=== PATIENT | male | born 1935 | race Caucasian/White ===

== ENCOUNTER 2022-07-01 08:25 | Inpatient (IN) | payer MEDICARE, OTHER ==
[2022-07-01 09:21] LABS: #Lymphocytes 1.2 thou/uL (1.20-3.40); #Monocytes 0.9 thou/uL (0.11-0.59); #Neutrophils 8.4 thou/uL (1.40-6.50); %Basophils 0.1 % (0.0-1.0); %Eosinophils 0.4 % (0.0-10.0); %Lymphocytes 10.9 % (21.0-51.0); %Monocytes 8.6 % (0.0-10.0); Hemoglobin 13.4 g/dL (14.0-18.0); Mean Corpuscular HGB CONC 33.3 g/dL (32.0-36.0); Mean Corpuscular Hemoglobin 31.5 pg (27.0-31.0); Mean Corpuscular Volume 94.8 fL (78.0-98.0); Mean Platelet Volume 8.8 fL (7.4-10.4); Platelet Count 112 thou/uL (130-400); RBC Distribution Width 12.1 % (11.5-14.5); Red Blood Cell (RBC) Count 4.25 mill/uL (4.70-6.10); White Blood Cell (WBC) Count 10.6 thou/uL (4.8-10.8)
[2022-07-01 09:45] LABS: ALT (SGPT) 20 U/L (8-55); AST (SGOT) 44 U/L (5-34); Albumin 3.6 g/dL (3.4-4.8); Alkaline Phosphatase 75 U/L (40-110); Anion Gap 14 mmol/L (10-20); BUN (Urea Nitrogen) 42 mg/dL (8.4-25.7); Bilirubin, Total 2.1 mg/dL (0.2-1.2); CK (CPK) 939 U/L (30-200); Calc. Creatinine Clearance 0 mL/min (70-130); Calcium 10.1 mg/dL (7.8-10.44); Carbon Dioxide 23 mmol/L (23-31); Chloride 101 mmol/L (98-107); Estimated GFR 34; Globulin 3.3 g/dL (2.4-3.5); Glucose 117 mg/dL (83-110); Lipase 42 U/L (8-78); Potassium 3.9 mmol/L (3.5-5.1); Protein, Total 6.9 g/dL (5.8-8.1); Sodium 134 mmol/L (136-145)
[2022-07-01 10:15] LABS: SARS-CoV-2 NAA Rapid Test DETECTED (NotDetected)
[2022-07-01] MEDS ORDERED: Cefepime 2 GM VIAL ONE (10:23)
[2022-07-01 10:29] LABS: Bilirubin Negative (Negative); Blood, Urine 2+ (Negative); Clarity Clear (Clear); Glucose, Urine (Dipstick) Greater than 1000 mg/dL (Negative); Ketone, Urine Negative (Negative); Leukocyte 250 Leu/uL (Negative); Nitrite Negative (Negative); Protein, Urine (Dipstick) 10 mg/dL (Neg-Trace); Specific Gravity, Urine 1.017 (1.002-1.036); Squamous Epithelial None Seen HPF (0-3); Urobilinogen Normal mg/dL (Less than 2); WBC/HPF 21-50 HPF (0-3)
[2022-07-01 10:31] LABS: Bacteria/HPF 1+ HPF (None Seen)
[2022-07-01] MEDS ORDERED: Vancomycin 1 GM/200 ML BAG ONE (10:46)
[2022-07-01] MEDS ORDERED: Bisacodyl 5 MG TAB PO PRN (11:43)
[2022-07-01] MEDS ORDERED: Calcium Carbonate 500 MG ChewTAB PO PRN (11:43)
[2022-07-01] MEDS ORDERED: Ondansetron ODT 4 MG TAB PO PRN (11:43)
[2022-07-01] MEDS ORDERED: Ondansetron PF 4 MG/2 ML Vial IVP PRN (11:43)
[2022-07-01] MEDS ORDERED: Senokot S 8.6-50 MG TAB PO PRN (11:43)
[2022-07-01] MEDS ORDERED: Dexamethasone 4 mg/ml Vial SLOW IVP SCH (12:15)
[2022-07-01] MEDS ORDERED: Dexamethasone 10 MG/ML VIAL ONE (12:54)
[2022-07-01] MEDS: Sodium Chloride 0.9% 1,000 ML IV SCH (12:56)
[2022-07-01] MEDS ORDERED: REMDESIVIR 200 MG in Sodium Chloride 0.9% 250 ML 210 ML IV SCH (13:45)
[2022-07-01] MEDS: Heparin 5,000 UNITS/ML VIAL SC SCH ×2 (16:09→21:00)
[2022-07-01] MEDS: risperiDONE 0.25 MG TAB PO SCH ×2 (16:09→20:58)
[2022-07-01] MEDS: HumuLIN 70/30 (300 UNITS/3 ML VIAL) SC SCH (17:29)
[2022-07-01] MEDS: Ciprofloxacin 0.3% Ophth Soln 2.5 ml Bottle L EYE SCH ×2 (20:56→20:57)
[2022-07-01] MEDS: Insulin Glargine 30 UNITS/0.3 ML VIAL SC SCH (20:57)
[2022-07-01] MEDS: Atorvastatin Calcium 40 MG TAB PO SCH (20:57)
[2022-07-02] MEDS: Sodium Chloride 0.9% 1,000 ML IV SCH ×2 (03:02→07:31)
[2022-07-02 03:50] LABS: #Lymphocytes 0.5 thou/uL (1.20-3.40); #Monocytes 0.3 thou/uL (0.11-0.59); #Neutrophils 5.3 thou/uL (1.40-6.50); %Eosinophils 0.3 % (0.0-10.0); %Lymphocytes 8.7 % (21.0-51.0); %Monocytes 4.5 % (0.0-10.0); %Neutrophils 86.6 % (42.0-75.0); Hemoglobin 12.7 g/dL (14.0-18.0); Mean Corpuscular Hemoglobin 32.1 pg (27.0-31.0); Mean Corpuscular Volume 97.4 fL (78.0-98.0); Mean Platelet Volume 8.6 fL (7.4-10.4); Platelet Count 101 thou/uL (130-400); Red Blood Cell (RBC) Count 3.95 mill/uL (4.70-6.10); White Blood Cell (WBC) Count 6.1 thou/uL (4.8-10.8)
[2022-07-02 04:11] LABS: ALT (SGPT) 26 U/L (8-55); AST (SGOT) 42 U/L (5-34); Albumin 3.1 g/dL (3.4-4.8); Alkaline Phosphatase 69 U/L (40-110); Anion Gap 12 mmol/L (10-20); BUN (Urea Nitrogen) 35 mg/dL (8.4-25.7); Bilirubin, Total 0.8 mg/dL (0.2-1.2); CK (CPK) 393 U/L (30-200); Calc. Creatinine Clearance 0 mL/min (70-130); Calcium 9.5 mg/dL (7.8-10.44); Carbon Dioxide 20 mmol/L (23-31); Chloride 108 mmol/L (98-107); Estimated GFR 54; Globulin 2.9 g/dL (2.4-3.5); Glucose 413 mg/dL (83-110); Potassium 4.4 mmol/L (3.5-5.1); Sodium 136 mmol/L (136-145)
[2022-07-02] MEDS: HumuLIN 70/30 (300 UNITS/3 ML VIAL) SC SCH ×4 (06:31→17:01)
[2022-07-02] MEDS: Ciprofloxacin 0.3% Ophth Soln 2.5 ml Bottle L EYE SCH ×4 (09:59→21:16)
[2022-07-02] MEDS: Dexamethasone 4 mg/ml Vial SLOW IVP SCH (09:59)
[2022-07-02] MEDS: Heparin 5,000 UNITS/ML VIAL SC SCH ×3 (10:02→21:15)
[2022-07-02] MEDS: risperiDONE 0.25 MG TAB PO SCH ×3 (10:03→21:14)
[2022-07-02] MEDS: REMDESIVIR 100 MG in Sodium Chloride 0.9% 250 ML 230 ML IV SCH (17:30)
[2022-07-02] MEDS: Atorvastatin Calcium 40 MG TAB PO SCH (21:14)
[2022-07-02] MEDS: Acetaminophen 325 MG TAB PO PRN (21:14)
[2022-07-02] MEDS: Insulin Glargine 30 UNITS/0.3 ML VIAL SC SCH (21:14)
[2022-07-03] MEDS: Dexamethasone 4 mg/ml Vial SLOW IVP SCH (08:27)
[2022-07-03] MEDS: Heparin 5,000 UNITS/ML VIAL SC SCH ×3 (08:27→20:13)
[2022-07-03] MEDS: risperiDONE 0.25 MG TAB PO SCH ×3 (08:27→20:12)
[2022-07-03] MEDS: HumuLIN 70/30 (300 UNITS/3 ML VIAL) SC SCH ×3 (08:27→17:02)
[2022-07-03] MEDS: Ciprofloxacin 0.3% Ophth Soln 2.5 ml Bottle L EYE SCH ×4 (08:28→20:20)
[2022-07-03] MEDS: REMDESIVIR 100 MG in Sodium Chloride 0.9% 250 ML 230 ML IV SCH (14:10)
[2022-07-03] MEDS ORDERED: Saccharomyces boulardii 250 MG CAP PO SCH (14:30)
[2022-07-03] MEDS: Atorvastatin Calcium 40 MG TAB PO SCH (20:11)
[2022-07-03] MEDS: Acetaminophen 325 MG TAB PO PRN (20:11)
[2022-07-03] MEDS: Insulin Glargine 30 UNITS/0.3 ML VIAL SC SCH (20:13)
[2022-07-03] MEDS ORDERED: Ziprasidone 20 MG VIAL IM SCH (23:45)
[2022-07-03] MEDS ORDERED: Sterile Water 10 ML VIAL FS PRN (23:45)
[2022-07-04 08:34] LABS: #Lymphocytes 1.1 thou/uL (1.20-3.40); #Monocytes 0.5 thou/uL (0.11-0.59); #Neutrophils 3.1 thou/uL (1.40-6.50); %Basophils 0.3 % (0.0-1.0); %Eosinophils 0.3 % (0.0-10.0); %Lymphocytes 23.3 % (21.0-51.0); %Monocytes 10.2 % (0.0-10.0); Hemoglobin 12.7 g/dL (14.0-18.0); Mean Corpuscular Hemoglobin 31.6 pg (27.0-31.0); Mean Platelet Volume 8.3 fL (7.4-10.4); Platelet Count 114 thou/uL (130-400); RBC Distribution Width 12.2 % (11.5-14.5); Red Blood Cell (RBC) Count 4.02 mill/uL (4.70-6.10); White Blood Cell (WBC) Count 4.7 thou/uL (4.8-10.8)
[2022-07-04 08:55] LABS: Anion Gap 11 mmol/L (10-20); BUN (Urea Nitrogen) 34 mg/dL (8.4-25.7); CK (CPK) 94 U/L (30-200); Calc. Creatinine Clearance 0 mL/min (70-130); Calcium 9.1 mg/dL (7.8-10.44); Carbon Dioxide 23 mmol/L (23-31); Chloride 109 mmol/L (98-107); Estimated GFR 71; Glucose 252 mg/dL (83-110); Potassium 3.6 mmol/L (3.5-5.1); Sodium 139 mmol/L (136-145)
[2022-07-04] MEDS: HumuLIN 70/30 (300 UNITS/3 ML VIAL) SC SCH ×3 (09:58→17:43)
[2022-07-04] MEDS: Ciprofloxacin 0.3% Ophth Soln 2.5 ml Bottle L EYE SCH ×4 (09:59→21:45)
[2022-07-04] MEDS: Dexamethasone 4 mg/ml Vial SLOW IVP SCH (10:00)
[2022-07-04] MEDS: risperiDONE 0.25 MG TAB PO SCH ×3 (10:01→21:43)
[2022-07-04] MEDS: Saccharomyces boulardii 250 MG CAP PO SCH (10:01)
[2022-07-04] MEDS: Heparin 5,000 UNITS/ML VIAL SC SCH ×3 (10:16→21:44)
[2022-07-04 11:38] VITALS: BMI 31.4
[2022-07-04] MEDS: REMDESIVIR 100 MG in Sodium Chloride 0.9% 250 ML 230 ML IV SCH (14:51)
[2022-07-04] MEDS: Atorvastatin Calcium 40 MG TAB PO SCH (21:43)
[2022-07-04] MEDS: Insulin Glargine 30 UNITS/0.3 ML VIAL SC SCH (21:44)
[2022-07-05] MEDS: Heparin 5,000 UNITS/ML VIAL SC SCH ×2 (09:36→15:26)
[2022-07-05] MEDS: Saccharomyces boulardii 250 MG CAP PO SCH (09:38)
[2022-07-05] MEDS: Dexamethasone 4 mg/ml Vial SLOW IVP SCH (09:39)
[2022-07-05] MEDS: risperiDONE 0.25 MG TAB PO SCH ×2 (09:39→15:26)
[2022-07-05] MEDS: HumuLIN 70/30 (300 UNITS/3 ML VIAL) SC SCH ×3 (09:40→16:38)
[2022-07-05] MEDS: Ciprofloxacin 0.3% Ophth Soln 2.5 ml Bottle L EYE SCH ×3 (09:40→16:38)
[2022-07-05] MEDS: REMDESIVIR 100 MG in Sodium Chloride 0.9% 250 ML 230 ML IV SCH (10:07)
[2022-07-05 12:37] VITALS: BP 138/62; TEMP 97.7
== END 2022-07-05 17:30 | disposition home or self-care (01) | DRG 871 ==
LOC: ERS 08:25 → SUATTDRO 08:25 → ERHOLD 10:45 → 2NO 15:38
PROVIDERS: ADMIT Internal Medicine; ATTEND Internal Medicine
PROC: XW033E5 Introduction of Remdesivir Anti-infective into Peripheral Vein, Percutaneous Approach, New Technology Group 5 (ICD-10-PCS; principal; 2022-07-01)
PROC: 8E0ZXY6 Isolation (ICD-10-PCS; 2022-07-01)
PROC: 3E03329 Introduction of Other Anti-infective into Peripheral Vein, Percutaneous Approach (ICD-10-PCS; 2022-07-01)
DX: A41.9 Sepsis, unspecified organism (principal); G93.41 Metabolic encephalopathy; U07.1 COVID-19; M62.82 Rhabdomyolysis; N17.9 Acute kidney failure, unspecified; F39 Unspecified mood [affective] disorder; E78.5 Hyperlipidemia, unspecified; E11.9 Type 2 diabetes mellitus without complications; H91.90 Unspecified hearing loss, unspecified ear; H10.9 Unspecified conjunctivitis; F03.90 Unspecified dementia, unspecified severity, without behavioral disturbance, psychotic disturbance, mood disturbance, and anxiety; R09.02 Hypoxemia; Z79.4 Long term (current) use of insulin; Z88.4 Allergy status to anesthetic agent; Z88.0 Allergy status to penicillin; Z79.899 Other long term (current) drug therapy
CPT/HCPCS: 36415; 36416; 70450; 71045; 80048; 80053; 81003; 81015; 82140; 82550; 83605; 83690; 83880; 84443; 84484; 85025; 87040; 87076; 87086; 87149; 93005; 96365; 96367; J0248; J0692; J1100; J1644; J1815; J1956; J2405; J3370; J3486; J7050

== ENCOUNTER 2022-12-19 18:07 | Emergency (ER) | payer MEDICARE, SELFPAY ==
[2022-12-19 18:52] LABS: #Eosinphils 0.4 thou/uL (0.0-0.7); #Lymphocytes 1.1 thou/uL (1.20-3.40); #Monocytes 0.4 thou/uL (0.11-0.59); #Neutrophils 3.5 thou/uL (1.40-6.50); %Basophils 0.1 % (0.0-1.0); %Eosinophils 7.8 % (0.0-10.0); %Lymphocytes 20.3 % (21.0-51.0); %Neutrophils 64.8 % (42.0-75.0); Hemoglobin 10.9 g/dL (14.0-18.0); Mean Corpuscular HGB CONC 32.7 g/dL (32.0-36.0); Mean Corpuscular Hemoglobin 31.1 pg (27.0-31.0); Platelet Count 288 10x3/uL (130-400); RBC Distribution Width 12.7 % (11.5-14.5); Red Blood Cell (RBC) Count 3.52 mill/uL (4.70-6.10); White Blood Cell (WBC) Count 5.4 10x3/uL (4.8-10.8)
[2022-12-19 20:00] LABS: ALT (SGPT) 56 U/L (8-55); AST (SGOT) 46 U/L (5-34); Albumin 3.5 g/dL (3.4-4.8); Alkaline Phosphatase 159 U/L (40-110); Anion Gap 15 mmol/L (10-20); BUN (Urea Nitrogen) 26 mg/dL (8.4-25.7); Bilirubin, Total 0.4 mg/dL (0.2-1.2); Calc. Creatinine Clearance 0 mL/min (70-130); Carbon Dioxide 23 mmol/L (23-31); Chloride 105 mmol/L (98-107); Estimated GFR 61; Globulin 3.9 g/dL (2.4-3.5); Glucose 179 mg/dL (83-110); Lipase 65 U/L (8-78); Potassium 4.4 mmol/L (3.5-5.1); Protein, Total 7.4 g/dL (5.8-8.1); Sodium 139 mmol/L (136-145)
[2022-12-19 20:24] LABS: Bacteria/HPF None Seen HPF (None Seen); Bilirubin Negative (Negative); Blood, Urine Negative (Negative); Clarity Clear (Clear); Glucose, Urine (Dipstick) Normal (Negative); Ketone, Urine Negative (Negative); Leukocyte 250 Leu/uL (Negative); Nitrite Negative (Negative); Protein, Urine (Dipstick) 30 mg/dL (Neg-Trace); RBC/HPF 0-3 HPF (0-3); Specific Gravity, Urine 1.027 (1.002-1.036); Squamous Epithelial None Seen HPF (0-3); Urobilinogen Normal mg/dL (Less than 2)
== END 2022-12-19 22:05 | disposition home or self-care (01) ==
LOC: ERS 18:07
DX: R53.1 Weakness (principal); E11.9 Type 2 diabetes mellitus without complications; E78.00 Pure hypercholesterolemia, unspecified; I10 Essential (primary) hypertension; Z79.4 Long term (current) use of insulin
CPT/HCPCS: 70450; 71045; 80053; 81003; 81015; 82140; 83690; 84484; 85025; 93005